=== PATIENT | male | born 1930 | race Hispanic/Latino ===

== ENCOUNTER → 2017-10-19 | Outpatient (CLI) | payer MEDICARE ==
[~2017-10-19] MED LIST: HYDR25TA PO; IBUP-2070 PO; LOSA25TA21 PO
== END | disposition home or self-care (01) ==
LOC: RAH 15:57
PROVIDERS: ATTEND Physical Medicine & Rehabilitation
DX: M47.892 Other spondylosis, cervical region (principal); M48.02 Spinal stenosis, cervical region
CPT/HCPCS: 72040